=== PATIENT | male | born 1970 | race Caucasian/White ===

== ENCOUNTER 2017-08-12 11:19 | Emergency (ER) | payer MEDICAID ==
[2017-08-12] MEDS: HYDROCODONE/APAP (5/325) TAB PO (14:16)
[2017-08-12 14:31] LABS: ADD MAN DIFF? NO
[2017-08-12 14:53] LABS: BASOPHILS % 0.6 % (0.0-2.0); EOSINOPHILS # 0.4 10^3/ul (0.0-0.5); EOSINOPHILS % 5.9 % (0.0-7.0); HEMATOCRIT 34.7 % (42.0-52.0); HEMOGLOBIN 11.5 g/dl (14.0-18.0); LYMPHOCYTES # 1.7 10^3/ul (0.8-2.9); MEAN CORPUSCULAR HEMOGLOBIN 30.3 pg (29.0-33.0); MEAN CORPUSCULAR HGB CONC 33.1 g/dl (32.0-37.0); MEAN CORPUSCULAR VOLUME 91.3 fl (82.0-101.0); MEAN PLATELET VOLUME 10.3 fl (7.4-10.4); MONOCYTE # 0.5 10^3/ul (0.3-0.9); NEUTROPHIL # 4.1 10^3/ul (1.6-7.5); NEUTROPHILS % 60.2 % (39.0-77.0); PLATELET COUNT 272 10^3/UL (140-415); RED CELL DISTRIBUTION WIDTH 13.3 % (11.5-14.5)
[2017-08-12 14:53] LABS: WHITE BLOOD COUNT 6.8 10^3/ul (4.8-10.8)
[2017-08-12 14:56] LABS: ADD UMIC YES; UR ASCORBIC ACID NEGATIVE (NEGATIVE); UR BILIRUBIN (Dip) NEGATIVE (NEGATIVE); UR BLOOD (Dip) 1+ mg/dL (NEGATIVE); UR CLARITY CLEAR (CLEAR); UR COLOR STRAW (YELLOW); UR GLUCOSE (Dip) 1+ mg/dL (NEGATIVE); UR KETONES (Dip) NEGATIVE (NEGATIVE); UR LEUKOCYTE ESTERASE (Dip) 1+ Leu/ul (NEGATIVE); UR NITRITE (Dip) NEGATIVE (NEGATIVE); UR RBC 3 /HPF (0-5); UR SPECIFIC GRAVITY (Dip) 1.005 (1.003-1.030); UR TOTAL PROTEIN (Dip) 3+ mg/dl (NEGATIVE); UR UROBILINOGEN (Dip) NEGATIVE (NEGATIVE); UR WBC 17 /HPF (0-5)
[2017-08-12 15:21] LABS: ALANINE AMINOTRANSFERASE 128 IU/L (13-69); ALBUMIN 4.3 g/dl (3.3-4.9); ALBUMIN/GLOBULIN RATIO 1.43; ALKALINE PHOSPHATASE 146 IU/L (42-121); ANION GAP 17 (8-16); ASPARTATE AMINO TRANSFERASE 67 IU/L (15-46); BILIRUBIN,INDIRECT 0.1 mg/dl (0-1.1); BILIRUBIN,TOTAL 0.1 mg/dl (0.2-1.3); BLOOD UREA NITROGEN 30 mg/dl (7-20); CALCIUM 10.4 mg/dl (8.4-10.2); CARBON DIOXIDE 28 mmol/L (21-31); CHLORIDE 99 mmol/L (97-110); GLUCOSE 89 mg/dl (70-220); LIPASE 145 U/L (23-300); POTASSIUM 3.7 mmol/L (3.5-5.1); SODIUM 140 mmol/L (135-144); TOTAL PROTEIN 7.3 g/dl (6.1-8.1)
== END 2017-08-12 17:40 | disposition home or self-care (01) ==
LOC: FTE 11:19
DX: R10.11 Right upper quadrant pain (principal); I12.9 Hypertensive chronic kidney disease with stage 1 through stage 4 chronic kidney disease, or unspecified chronic kidney disease; N18.9 Chronic kidney disease, unspecified; Z99.2 Dependence on renal dialysis
CPT/HCPCS: 36415; 71045; 76705; 80053; 81001; 83690; 85025; 99285-25